=== PATIENT | male | born 1985 | race African-American/Black ===

== ENCOUNTER 2025-01-20 20:50 | Inpatient (IN) | payer OTHER, SELFPAY ==
--- NOTE | 2025-01-20 | ECG_ITS ---
Test Reason : NAUSEA/VOMITING Blood Pressure : */* mmHG Vent. Rate : 69 BPM Atrial Rate : 69 BPM P-R Int : 180 ms QRS Dur : 86 ms QT Int : 398 ms P-R-T Axes : 83 63 61 degrees QTcB Int : 426 ms Normal sinus rhythm Biatrial enlargement Abnormal ECG No previous ECGs available Referred By: Generic ED Physician Electronically Signed By: TESS SYED
--- NOTE | ~2025-01-20 | CT_ITS ---
CLINICAL HISTORY: diffuse abd pain, N V, elevated Cr CT abdomen and pelvis without contrast Comparison: None provided Findings: The lung bases are clear. There is a cyst in the left lobe of the liver. Liver is otherwise unremarkable. The gallbladder, pancreas, spleen, adrenal glands, and kidneys are unremarkable. The appendix is normal. The remainder of the gastrointestinal tract is unremarkable. There are no enlarged lymph nodes. The bladder is unremarkable. The aorta is normal in diameter. There is no fracture or suspicious lytic or sclerotic lesion. IMPRESSION: No acute abnormality in the abdomen or pelvis. This document has been electronically signed by: Natan Archer MD on 01/21/2025 02:38:01
[2025-01-20 20:56] VITALS: BP 110/84; PULSE 108; O2SAT 99
[2025-01-20 21:08] VITALS: BP 135/93; PULSE 67; RESP 15; TEMP 36.8; O2SAT 99; BMI 26.4
[2025-01-20 21:17] LABS: MANUAL DIFF FLAG NO
--- NOTE | 2025-01-20 21:18 | PC.NURSE ---
assumed care of pt. pt rocio, states he was outside working all day and on his way home he began to vomit and feel dizzy and fatigued. He threw up at least 4 times before [address] into the ED. Pt now complains of leg cramping. provider advised. respirations even and unlabored.
[2025-01-20 21:21] VITALS: BP 135/93; PULSE 67; RESP 15; TEMP 36.8; O2SAT 99
[2025-01-20 21:23] LABS: Hematocrit 45.4 % (42.0-52.0); Hemoglobin 16.7 g/dl (14.0-18.0); Imm Gran Abs Auto 0.05 X10*3/uL (0.00-0.03); Imm Gran Pct Auto 0.4 % (0.0-0.4); Lymphocytes Absolute Auto 2.9 X10*3/uL (1.2-4.9); Mean Corpuscular HGB Conc 36.8 g/dl (31.0-36.0); Mean Corpuscular Hemoglobin 31.7 pg (27.0-33.0); Mean Corpuscular Volume 86.1 fL (80.0-98.0); NRBC Abs Auto 0.000 X10*3/uL (0.0-0.012); NRBC Pct Auto 0.0 /100WBC (0.0-0.2); Platelet Count 380 X10*3/uL (160-400); Red Blood Count 5.27 X10*6/uL (4.60-5.80); White Blood Count 12.4 X10*3/uL (4.8-10.8)
[2025-01-20 21:33] LABS: Alanine Aminotransferase 26 U/L (0-40); Albumin Level 5.3 g/dL (3.5-5.0); Alkaline Phosphatase 80 U/L (39-117); Anion Gap 19 (12-20); Aspartate Amino Transferase 30 U/L (5-37); Blood Urea Nitrogen 22 mg/dL (9-16); Calcium 10.4 mg/dL (8.4-10.2); Carbon Dioxide 24 mmol/L (22-29); Chloride 101 mmol/L (96-108); Creatinine Clr Calc Pharmacy 40.4; Estimated Glomerular Filt Rate 27; Lipase 14 U/L (8-78); Magnesium 2.1 mg/dL (1.6-2.6); Potassium 3.7 mmol/L (3.3-5.1); Sodium 140 mmol/L (135-145); Total Protein 8.8 g/dL (6.5-8.0)
[2025-01-20 21:40] LABS: Troponin-I High Sensitivity 3.0 ng/L (<3.5-35.0)
--- NOTE | 2025-01-21 00:23 | PC.NURSE ---
Dark sienna color urine collected and sent to lab.
[2025-01-21 00:24] VITALS: BP 120/66; PULSE 85; RESP 18; TEMP 37.1; O2SAT 98
[2025-01-21 00:42] LABS: Cannabinoid Screen Urine POSITIVE (Not Detect)
--- NOTE | 2025-01-21 00:43 | ED.NAVMDI ---
HPI - Nausea/Vomiting/Diarrhea General Chief complaint: Nausea/Vomiting/Diarrhea Stated complaint: dehydration ,vomit, cramps Time Seen by Provider: 01/21/25 00:07 Source: patient Mode of arrival: ambulatory Limitations: no limitations History of Present Illness ED Provider: Dr. Evelyn Herman HPI Narrative: Patient comes to the emergency room complaining of nausea and vomiting for couple of days. Patient states that he does a lot of physical work outside, frequently becomes dehydrated, admits that he does not drink enough water. Patient complaining of muscle cramps, nausea, vomiting. Patient states that last week he had the same thing happening, he was admitted to [facility], states he was there for 4 days. Patient admits that he uses marijuana as well. Patient denies fever chills. Patient states that his urine looks almost like coffee Related Data Allergies Allergy/AdvReac Type Severity Reaction Status Date / Time No Known Allergies Allergy Verified 01/20/25 21:09 Review of Systems Review of Systems: Constitutional : No Weight loss, No Fever, No Chills, No Night Sweats, No Fatigue, No Malaise ENT/Mouth : No Hearing loss, No Ear Pain, No Nasal Congestion, No Sinus Pain, No Hoarseness, No sore throat, No Rhinorrhea, No Swallowing Difficulty Eyes: No Eye Pain, No Swelling, No Redness, No Foreign Body, No Discharge, No Vision Changes Cardiovascular : No Chest Pain, No SOB, No Dyspnea on Exertion, No Orthopnea, No Edema, No Palpitations Respiratory : No Cough, No Sputum, No Wheezing, No Smoke Exposure, No Dyspnea Gastrointestinal : Nausea and vomiting No Diarrhea, No Constipation, No abdominal Pain, No Hematochezia, No Melena Genitourinary : no irregular bleeding, No Dysuria, No Urinary Frequency, No Hematuria, No Urinary Incontinence, No Urgency, No Flank Pain, No Urinary Flow Changes, No Hesitancy Musculoskeletal : No joint pain, No Myalgias, No Joint Swelling Skin : No Skin Lesions, No rash Neuro : No Weakness, No Numbness, No Paresthesias, No Loss of Consciousness, No Dizziness, No Headache Psych : No Anxiety/Panic, No Depression, No SI/HI/AH/VH, No Social Issues, Heme/Lymph: No Bruising, No Bleeding,No Lymphadenopathy Endocrine : No Polyuria, No Polydipsia, No Temperature Intolerance [facility] Social History Social History Advance Directives: No Advance Directives Information Provided: No Do you have a plan to hurt others: No Plan Physical Exam Vital Signs: Vital Signs: Last Vital Signs Temp 98.2 F 01/21/25 03:49 Pulse 52 01/21/25 03:49 Resp 18 01/21/25 03:49 BP 123/67 01/21/25 03:49 Pulse Ox 99 01/21/25 03:49 O2 Del Method Room Air 01/21/25 03:49 BMI result Body Mass Index 26.4 Const: Other: Appearance: Alert. Oriented X3. Very uncomfortable, actively vomiting Eyes: Pupils equal, round and reactive to light. ENT: Pharynx normal. Neck: Normal inspection. Neck supple. No lymph nodes noted. No crepitus CVS: Normal heart rate and rhythm. Pulses normal. Normal S1 and S2 Respiratory: No respiratory distress. Breath sounds normal. No Wheezing. No rales Abdomen: Soft tenderness, just discomfort to palpation, No rigidity. No distention. Skin: Skin warm and dry. Normal skin color. Normal skin turgor. Extremities: No lower extremity edema. No Lacerations. No Rash Neuro: Oriented X 3. No motor deficit. No sensory deficit. Moving all extremities. No slurred speech. CN 2 through 12 grossly intact Psych: calm, cooperative, normal affect Course Course Course Narrative: Patient receiving IV fluids, Zofran. All of patient's labs pending. Medications Administered Discontinued Medications Generic Name Dose Route Start Last Admin Trade Name Freq PRN Reason Stop Dose Admin Sodium Chloride 1,000 mls @ 999 mls/hr 01/20/25 23:45 01/21/25 02:01 Ns IV 01/21/25 00:45 Infused .Q1H1M LEONOR Infusion Sodium Chloride 1,000 mls @ 999 mls/hr 01/21/25 00:08 01/21/25 01:35 Ns IVCONT 01/21/25 01:08 Infused .Q1H1M ONE Infusion Ondansetron HCl 4 mg 01/20/25 23:57 01/21/25 00:00 Ondansetron Hcl 4 Mg/2 Ml Vial IVPUSH 01/20/25 23:58 4 mg ONCE ONE Administration Prochlorperazine Edisylate 10 mg 01/21/25 00:09 01/21/25 00:14 Prochlorperazine Edisylate 10 Mg/2 Ml Vial IVPUSH 01/21/25 00:10 10 mg ONCE ONE Administration Medical Decision Making Medical Decision Making [facility] Narrative: My interpretation of labs: Patient's white blood cell count 12.4, no other significant abnormality in patient's hematology. Patient's creatinine is 2.69, no previous labs for comparison. Total CPK 275, lipase normal Patient continuous vomiting, patient given more IV fluids and Compazine, now a total [address] scan of the abdomen does not show any acute abnormality. Patient was p.o. challenged. Patient did not vomit but he is still very nauseous. Patient looking a bit clammy, still does not feel very well. Patient's creatinine did improve but not enough to be ready for discharge. I discussed the patient with Dr. Ramos from the Medicine team, patient being admitted Differential Diagnosis Differential Diagnoses: The differential diagnosis associated with the presentation includes (Dehydration, rhabdo, viral gastroenteritis, cyclical vomiting) Admission/Observation Consideration of admission/observation: Escalation of care including admission/observation considered Consult Healthcare Provider Management of the patient was discussed with: Hospitalist Lab Data [facility] Lab Attestation statement: I reviewed the patient's lab results. 01/20/25 21:12 01/21/25 03:53 Labs: Lab Results 01/20/25 01/21/25 01/21/25 Range/Units 21:12 00:22 03:53 WBC 12.4 H (4.8-10.8) X10*3/uL RBC 5.27 (4.60-5.80) X10*6/uL Hgb 16.7 (14.0-18.0) g/dl Hct 45.4 (42.0-52.0) % MCV 86.1 (80.0-98.0) fL MCH 31.7 (27.0-33.0) pg MCHC 36.8 H (31.0-36.0) g/dl RDW 12.8 (11.0-16.0) % Plt Count 380 (160-400) X10*3/uL MPV 9.1 L (9.4-12.4) fL Immature Gran % (Auto) 0.4 (0.0-0.4) % Neut % (Auto) 67.3 (45-73) % Lymph % (Auto) 23.4 (20-40) % [place] % (Auto) 7.8 (2-11) % Eos % (Auto) 0.6 (0-4) % Baso % (Auto) 0.5 (0-2) % Lymph # (Auto) 2.9 (1.2-4.9) X10*3/uL [place] # (Auto) 1.0 (0.1-1.2) X10*3/uL Eos # (Auto) 0.1 (0.0-0.4) X10*3/uL Baso # (Auto) 0.1 (0.0-0.2) X10*3/uL Abs Immat Gran (auto) 0.05 H (0.00-0.03) X10*3/uL Absolute Neuts (auto) 8.3 (2.0-8.3) x10*3/uL Absolute Nucleated RBC 0.000 (0.0-0.012) X10*3/uL Nucleated RBC % (auto) 0.0 (0.0-0.2) /100WBC Sodium 140 140 (135-145) mmol/L Potassium 3.7 4.5 D (3.3-5.1) mmol/L Chloride 101 107 (96-108) mmol/L Carbon Dioxide 24 21 L (22-29) mmol/L Anion Gap 19 17 (12-20) BUN 22 H 21 H (9-16) mg/dL Creatinine 2.69 H 1.63 H (0.5-1.4) mg/dL Estim Creat Clear Calc 40.4 66.7 Estimated GFR 27 47 Random Glucose 132 H 130 H (60-115) mg/dL Calcium 10.4 H 9.1 D (8.4-10.2) mg/dL Magnesium 2.1 (1.6-2.6) mg/dL Total Bilirubin 0.4 (0.0-1.0) mg/dL AST 30 (5-37) U/L ALT 26 (0-40) U/L Alkaline Phosphatase 80 (39-117) U/L Total Creatine Kinase 275 H (38-174) U/L Troponin I High Sens 3.0 (<3.5-35.0) ng/L Total Protein 8.8 H (6.5-8.0) g/dL Albumin 5.3 H (3.5-5.0) g/dL Lipase 14 (8-78) U/L Urine Opiates Screen Not Detected (Not Detect) Ur Buprenorphine Scrn Not Detected (Not Detect) ng/mL Ur Oxycodone Screen Not Detected (Not Detect) ng/mL Urine Methadone Screen Not Detected (Not Detect) ng/mL Urine Fentanyl Screen Not Detected (Not Detect) Ur Barbiturates Screen Not Detected (Not Detect) Ur Phencyclidine Scrn Not Detected (Not Detect) Ur Amphetamines Screen Not Detected (Not Detect) U Benzodiazepines Scrn Not Detected (Not Detect) Urine Cocaine Screen Not Detected (Not Detect) U Marijuana (THC) Screen POSITIVE H (Not Detect) Independent Interpretation I performed an independent interpretation of an: CT Scan Radiology Impression Discussion of test interpretation with radiology: I have reviewed the radiologist's reading. Radiologist Impression: There is a cyst in the left lobe of the liver. Liver is otherwise unremarkable. The gallbladder, pancreas, spleen, adrenal glands, and kidneys are unremarkable. The appendix is normal. The remainder of the gastrointestinal tract is unremarkable. There are no enlarged lymph nodes. The bladder is unremarkable. The aorta is normal in diameter. There is no fracture or suspicious lytic or sclerotic lesion. IMPRESSION: No acute abnormality in the abdomen or pelvis. Critical Care Time Critical Care Time Critical Care Time: Yes Total Critical Care Time: 60 Attestation: I have personally provided critical care time. Time includes review of lab data, radiology results, discussion with consultants, and monitoring for potential decompensation. Intervention performed as documented. Discharge Plan Discharge Clinical Impression: Dehydration, Rhabdomyolysis, Cyclical vomiting Patient Disposition: Admitted As Inpatient Print Language: [place]
[2025-01-21 02:23] VITALS: BP 129/76; PULSE 54; RESP 18; O2SAT 95
[2025-01-21 03:49] VITALS: BP 123/67; PULSE 52; RESP 18; TEMP 36.8; O2SAT 99
[2025-01-21 04:20] LABS: Anion Gap 17 (12-20); Blood Urea Nitrogen 21 mg/dL (9-16); Calcium 9.1 mg/dL (8.4-10.2); Carbon Dioxide 21 mmol/L (22-29); Chloride 107 mmol/L (96-108); Creatinine Clr Calc Pharmacy 66.7; Estimated Glomerular Filt Rate 47; Potassium 4.5 mmol/L (3.3-5.1); Sodium 140 mmol/L (135-145)
--- NOTE | 2025-01-21 05:02 | PC.NURSE ---
Pt given saltine crackers and gingerale, tolerated well, denies nausea.
--- NOTE | 2025-01-21 05:29 | P.HPHOSP_ITS ---
History of Present Illness Date of Service: 01/21/25 Attending physician on admission: Cassie Ramos Chief Complaint: vomiting Patient is a 39-year-old male with a past medical history significant for anxiety, who presented to the ED due to vomiting for the past few days. 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 He has had muscle cramping, nausea and vomiting. He had a similar episode last week and was hospitalized a [facility] for 4 days. Currently he feels uncomfortable in his having nausea but vomiting is controlled. He also reports intermittent diarrhea usually only once a day without any blood in the stool. He denies any hematemesis either. He does not have any urinary symptoms aside from dark urine. He reports that he smokes a few joints per day. No alcohol or cigarette use. Review of Systems 2 Constitutional: Constitutional: Denies chills, Reports fatigue, Denies fever(s) and Denies headache(s) Eyes: Eyes: Denies change in vision ENT: Denies headache(s) and Denies nasal discharge Cardiovascular: Cardiovascular: Denies chest pain, Denies rapid heart rate, Denies leg edema and Denies dyspnea Respiratory: Respiratory: Denies chest congestion, Denies cough, Denies dyspnea and Denies wheezing Gastrointestinal: Gastrointestinal: Reports as per HPI Genitourinary: Genitourinary: Denies dysuria Musculoskeletal: Musculoskeletal: Reports muscle cramps Integumentary/Breasts: Skin/Breast: Denies rash Neurologic: Denies confusion and Denies headache(s) Psychiatric: Psychiatric: Denies confusion Endocrine: Endocrine: Reports fatigue Hematologic/Lymphatic: Hematologic/Lymphatic: Denies easy bleeding and Denies easy bruising Allergic/Immunologic: Allergic/Immunologic: Denies wheezing [facility] Medical History Anxiety Functional capacity: independent ambulation Social History Unable to assess alcohol history related to: Unable to respond Patient Tobacco Use Status: Never used Tobacco Advance Directives: No Advance Directives Information Provided: No Do you have a plan to hurt others: No Plan Nutrition Risks: No Nutritional Risk Narrative: smokes a few joints/day . no etoh or ciagrettes. Meds Allergies Allergy/AdvReac Type Severity Reaction Status Date / Time No Known Allergies Allergy Verified 01/20/25 21:09 Active Medications: Current Medications Acetaminophen (Acetaminophen 325 Mg Tablet) 975 mg PO Q6H PRN PRN Reason: Pain, Mild 1-3,fever,headache Calcium Carbonate (Calcium Carbonate 750 Mg Tab.Chew) 750 mg PO Q4H PRN PRN Reason: Heartburn Enoxaparin Sodium (Enoxaparin Sodium 40 Mg/0.4 Ml Syringe) 40 mg SUBCUT Q24H [facility] Magnesium Hydroxide (Milk Of Magnesia 30 Ml Oral.Susp) 30 ml PO DAILY PRN PRN Reason: Constipation Melatonin (Melatonin 3 Mg Tablet) 6 mg PO BEDTIME PRN PRN Reason: Insomnia Ondansetron HCl (Ondansetron Hcl 4 Mg/2 Ml Vial) 4 mg IVPUSH Q8H PRN PRN Reason: Nausea and Vomiting Sodium Chloride (0.9 % Sodium Chloride Flush 3 Ml Syringe) 3 ml IVFLUSH QSHIFT LEONOR Physical Exam 2 Vital Signs and Narrative: Vital Signs: Last Vital Signs Temp 98.2 F 01/21/25 03:49 Pulse 52 01/21/25 03:49 Resp 18 01/21/25 03:49 BP 123/67 01/21/25 03:49 Pulse Ox 99 01/21/25 03:49 O2 Del Method Room Air 01/21/25 03:49 BMI result Body Mass Index 26.4 General: AOx3, no acute distress Resp: CTA bilaterally CVS: S1, S2, RRR GI: +BS, NT, no distention Skin: Warm, dry Neuro: Cranial nerves II-XII grossly intact bilaterally. Motor grossly intact bilaterally Extremities: No LE edema Psych: Appropriate affect Const: General: No confusion Orientation/consciousness: No confusion Neuro: General: No confusion Results Labs 01/20/25 21:12 01/21/25 03:53 Labs: Laboratory Results - last 24 hr 01/20/25 01/21/25 01/21/25 21:12 00:22 03:53 MCV 86.1 MCH 31.7 MCHC 36.8 H RDW 12.8 Plt Count 380 MPV 9.1 L Immature Gran % (Auto) 0.4 Neut % (Auto) 67.3 Lymph % (Auto) 23.4 [place] % (Auto) 7.8 Eos % (Auto) 0.6 Baso % (Auto) 0.5 Lymph # (Auto) 2.9 [place] # (Auto) 1.0 Eos # (Auto) 0.1 Baso # (Auto) 0.1 Abs Immat Gran (auto) 0.05 H Absolute Neuts (auto) 8.3 Absolute Nucleated RBC 0.000 Nucleated RBC % (auto) 0.0 Anion Gap 19 17 Estim Creat Clear Calc 40.4 66.7 Estimated GFR 27 47 Random Glucose 132 H 130 H Calcium 10.4 H 9.1 D Magnesium 2.1 Total Bilirubin 0.4 AST 30 ALT 26 Alkaline Phosphatase 80 Total Creatine Kinase 275 H Total Protein 8.8 H Albumin 5.3 H Lipase 14 Urine Opiates Screen Not Detected Ur Buprenorphine Scrn Not Detected Ur Oxycodone Screen Not Detected Urine Methadone Screen Not Detected Urine Fentanyl Screen Not Detected Ur Barbiturates Screen Not Detected Ur Phencyclidine Scrn Not Detected Ur Amphetamines Screen Not Detected U Benzodiazepines Scrn Not Detected Urine Cocaine Screen Not Detected U Marijuana (THC) Screen POSITIVE H Assessment and Plan (1) SAAD (acute kidney injury): Status: Acute (2) Dehydration: Status: Acute (3) Cyclical vomiting: Status: Acute Plan Patient is a 39-year-old male with a past medical history significant for anxiety, who presented to the ED due to vomiting for the past few days. 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 SAAD secondary to dehydration - electrolytes ok, bicarb slightly low at 21, BUN 21 - cr 2.69, improved to 1.63 - CPK 275, not elevated enough to be rhabdo - 2L IVF in ED, add LR 100ml/hr - monitor BMP cyclical vomiting, likely cannabinoid hyperemesis syndrome - frequent vomiting and frequent marijuana use - recent admission and [facility] for similar - discussed marijuana cessation - monitor CBC and BMP anxiety - no home meds full code VTE prophy: lovenox Patient with SAAD secondary to dehydration from cyclical vomiting, likely cannabinoid hyperemesis syndrome, requiring admission for at least 2 midnight stay for IV fluids and monitoring. Quality Stroke Does the patient have a stroke diagnosis?: No VTE Prior VTE?: No VTE Risk Level:: Medical - moderate - high VTE Device Contraindication: Treatment Not Indicated VTE Drug Contraindication: N/A - Med Ordered
[2025-01-21 06:06] VITALS: BP 128/39; PULSE 53; RESP 20; TEMP 36.8; O2SAT 100
[2025-01-21] MEDS: Lactated Ringers 1,000 ML 100 ML IVCONT ×2 (06:21→21:55)
--- NOTE | 2025-01-21 08:09 | PC.NURSE ---
Dr Tyler notified that the patients home meds have been reconciled by the pharmacy but have not yet been ordered.
--- NOTE | 2025-01-21 08:20 | PC.NURSE ---
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
--- NOTE | 2025-01-21 09:49 | PHA.MEDREC ---
Addendum entered by Qing Corbin RPh 01/21/25 11:08: [facility] REVIEWED Original Note: Pharmacy Consult ? Medication Reconciliation Pharmacy has completed the medication reconciliation. Spoke with pt, who was a bit sleepy but able to confirm his medications. Pt confirmed he takes his Escitalopram at bedtime and pt still has Ondansetron at home as needed.
--- NOTE | 2025-01-21 13:39 | HO.PM.IMPN ---
Subjective Subjective Date of Service: 01/21/25 Interval History: ongoing vomiting recognizes he has to quit THC Review of Systems Review of Systems: Yes all other systems are reviewed and are negative Physical Exam Vital Signs: Vital Signs: Last Vital Signs Temp 98.3 F 01/21/25 06:06 Pulse 53 01/21/25 06:06 Resp 20 01/21/25 06:06 BP 128/39 L 01/21/25 06:06 Pulse Ox 100 01/21/25 06:06 O2 Del Method Room Air 01/21/25 06:06 BMI result Body Mass Index 26.4 Gen: in no acute distress HEENT: sclera anicteric, moist mucus membranes Neck: supple Lungs: clear to auscultation bilaterally Heart: regular rate and rhythm, no murmurs Abd: soft, non-tender, non-distended Ext: no edema Skin: warm/well-perfused Neuro: alert and oriented x3, no focal findings Psych: appropriate affect Objective Data Active Medications Acetaminophen (Acetaminophen 325 Mg Tablet) 975 mg PO Q6H PRN PRN Reason: Pain, Mild 1-3,fever,headache Calcium Carbonate (Calcium Carbonate 750 Mg Tab.Chew) 750 mg PO Q4H PRN PRN Reason: Heartburn Enoxaparin Sodium (Enoxaparin Sodium 40 Mg/0.4 Ml Syringe) 40 mg SUBCUT Q24H [facility] Last Admin: 01/21/25 08:17 Dose: 40 mg Documented By: AICHA Escitalopram Oxalate (Escitalopram Oxalate 10 Mg Tablet) 10 mg PO BEDTIME [facility] Lactated Ringer's (Lr) 1,000 mls @ 100 mls/hr IVCONT .Q10H [facility] Last Admin: 01/21/25 06:21 Dose: 100 mls/hr Documented By: SREEDHAR Magnesium Hydroxide (Milk Of Magnesia 30 Ml Oral.Susp) 30 ml PO DAILY PRN PRN Reason: Constipation Melatonin (Melatonin 3 Mg Tablet) 6 mg PO BEDTIME PRN PRN Reason: Insomnia Omeprazole (Omeprazole 20 Mg Capsule.Dr) 20 mg PO BID@0630,1630 [facility] Ondansetron HCl (Ondansetron Hcl 4 Mg/2 Ml Vial) 4 mg IVPUSH Q8H PRN PRN Reason: Nausea and Vomiting Last Admin: 01/21/25 10:44 Dose: 4 mg Documented By: AICHA Simethicone (Simethicone 80 Mg Tab.Chew) 80 mg PO QID PRN PRN Reason: Gas Sodium Chloride (0.9 % Sodium Chloride Flush 3 Ml Syringe) 3 ml IVFLUSH QSHIFT LEONOR Last Admin: 01/21/25 08:17 Dose: Not Given Documented By: AICHA Non-Admin Reason: IV Running Labs 01/20/25 21:12 01/21/25 03:53 Labs: Laboratory Results - last 24 hr 01/20/25 01/21/25 01/21/25 21:12 00:22 03:53 MCV 86.1 MCH 31.7 MCHC 36.8 H RDW 12.8 Plt Count 380 MPV 9.1 L Immature Gran % (Auto) 0.4 Neut % (Auto) 67.3 Lymph % (Auto) 23.4 [place] % (Auto) 7.8 Eos % (Auto) 0.6 Baso % (Auto) 0.5 Lymph # (Auto) 2.9 [place] # (Auto) 1.0 Eos # (Auto) 0.1 Baso # (Auto) 0.1 Abs Immat Gran (auto) 0.05 H Absolute Neuts (auto) 8.3 Absolute Nucleated RBC 0.000 Nucleated RBC % (auto) 0.0 Anion Gap 19 17 Estim Creat Clear Calc 40.4 66.7 Estimated GFR 27 47 Random Glucose 132 H 130 H Calcium 10.4 H 9.1 D Magnesium 2.1 Total Bilirubin 0.4 AST 30 ALT 26 Alkaline Phosphatase 80 Total Creatine Kinase 275 H Total Protein 8.8 H Albumin 5.3 H Lipase 14 Urine Opiates Screen Not Detected Ur Buprenorphine Scrn Not Detected Ur Oxycodone Screen Not Detected Urine Methadone Screen Not Detected Urine Fentanyl Screen Not Detected Ur Barbiturates Screen Not Detected Ur Phencyclidine Scrn Not Detected Ur Amphetamines Screen Not Detected U Benzodiazepines Scrn Not Detected Urine Cocaine Screen Not Detected U Marijuana (THC) Screen POSITIVE H Assessment and Plan (1) Cyclical vomiting: Status: Acute (2) SAAD (acute kidney injury): Status: Acute Plan d1 for 39yo M presenting with nausea/vomiting and found to have SAAD cannabinoid hyperemesis syndrome - continue IV fluids, antiemetics prerenal SAAD - improving with IV fluids, recheck BMP in AM mood disorder - escitalopram VTE ppx - enoxaparin dispo - eventual home In my clinical judgment, the patient requires continued inpatient hospitalization for the following reasons: IV fluids Total time managing care of this patient today: 35 minutes. Quality Stroke Does the patient have a stroke diagnosis?: No VTE Prior VTE?: No VTE Risk Level:: Medical - moderate - high VTE Device Contraindication: Treatment Not Indicated VTE Drug Contraindication: N/A - Med Ordered
[2025-01-21 16:14] VITALS: BMI 26.4
[2025-01-21 16:24] VITALS: BP 145/72; PULSE 53; RESP 16; TEMP 37.4; O2SAT 96
[2025-01-21] MEDS: 0.9 % Sodium Chloride Flush 3 ML SYRINGE IVFLUSH ×2 (16:29→21:51)
[2025-01-21 19:22] VITALS: BP 124/70; PULSE 61; RESP 16; TEMP 37; O2SAT 96
[2025-01-22 03:28] VITALS: BP 138/74; PULSE 62; RESP 16; TEMP 36.1; O2SAT 98
[2025-01-22 06:32] LABS: Hematocrit 41.5 % (42.0-52.0); Hemoglobin 14.3 g/dl (14.0-18.0); Mean Corpuscular HGB Conc 34.5 g/dl (31.0-36.0); Mean Corpuscular Hemoglobin 31.0 pg (27.0-33.0); Mean Corpuscular Volume 90.0 fL (80.0-98.0); NRBC Abs Auto 0.000 X10*3/uL (0.0-0.012); NRBC Pct Auto 0.0 /100WBC (0.0-0.2); Platelet Count 331 X10*3/uL (160-400); Red Blood Count 4.61 X10*6/uL (4.60-5.80); White Blood Count 8.7 X10*3/uL (4.8-10.8)
[2025-01-22 06:49] LABS: Anion Gap 9 (12-20); Blood Urea Nitrogen 15 mg/dL (9-16); Calcium 8.6 mg/dL (8.4-10.2); Carbon Dioxide 29 mmol/L (22-29); Chloride 106 mmol/L (96-108); Creatinine Clr Calc Pharmacy 84.3; Estimated Glomerular Filt Rate > 60; Magnesium 2.2 mg/dL (1.6-2.6); Potassium 3.9 mmol/L (3.3-5.1); Sodium 140 mmol/L (135-145)
[2025-01-22 07:45] VITALS: BP 119/62; PULSE 66; RESP 14; TEMP 37.3; O2SAT 99
[2025-01-22] MEDS: Lactated Ringers 1,000 ML 100 ML IVCONT (07:45)
--- NOTE | 2025-01-22 10:27 | PM.DS ---
DS: Providers Provider Date of Service: 01/22/25 Date of admission: 01/21/25 05:11 Date of discharge: 01/22/25 Primary care physician: Unknown Physician DS: Diagnosis Discharge Diagnosis (1) Cyclical vomiting: Status: Acute (2) SAAD (acute kidney injury): Status: Acute (3) Cannabinoid hyperemesis syndrome: Status: Acute DS: Summary Hospital Course Hospital Course: From the history and physical by the admitting hospitalist, ESTHELA Bolanos, 01/21/25: Patient is a 39-year-old male with a past medical history significant for anxiety, who presented to the ED due to vomiting for the past few days. 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 He has had muscle cramping, nausea and vomiting. He had a similar episode last week and was hospitalized a [facility] for 4 days. Currently he feels uncomfortable in his having nausea but vomiting is controlled. He also reports intermittent diarrhea usually only once a day without any blood in the stool. He denies any hematemesis either. He does not have any urinary symptoms aside from dark urine. He reports that he smokes a few joints per day. No alcohol or cigarette use. 39yo M presenting with nausea/vomiting and found to have SAAD and admitted to the medical-surgical unit for IV hydration. Symptoms resolved and creatinine normalized. Likely ultimately due to cannabinoid hyperemesis syndrome, and he was counseled strongly to avoid cannabis. He tolerated regular diet and was discharged home with prescription for prn ondansetron. Time Attestation Discharge Coordination Time (in mins): 35 Quality: Safe Use of Opioids Does Pt have an Active Cancer Diagnosis on the Problem List?: No Quality: Stroke Does the patient have a stroke diagnosis?: No Physical Exam Vital Signs: Vital Signs: Last Vital Signs Temp 99.1 F 01/22/25 07:45 Pulse 66 01/22/25 07:45 Resp 14 01/22/25 07:45 BP 119/62 01/22/25 07:45 Pulse Ox 99 01/22/25 07:45 O2 Del Method Room Air 01/22/25 07:45 BMI result Body Mass Index 26.4 Gen: in no acute distress HEENT: sclera anicteric, moist mucus membranes Neck: supple Lungs: clear to auscultation bilaterally Heart: regular rate and rhythm, no murmurs Abd: soft, non-tender, non-distended Ext: no edema Skin: warm/well-perfused Neuro: alert and oriented x3, no focal findings Psych: appropriate affect DS: Data Data Completed and Pending Completed studies during hospitalization [Text1]: Laboratory Results WBC 8.7 X10*3/uL (4.8-10.8) 01/22/25 06:22 RBC 4.61 X10*6/uL (4.60-5.80) 01/22/25 06:22 Hgb 14.3 g/dl (14.0-18.0) 01/22/25 06:22 Hct 41.5 % (42.0-52.0) L 01/22/25 06:22 MCV 90.0 fL (80.0-98.0) 01/22/25 06:22 MCH 31.0 pg (27.0-33.0) 01/22/25 06:22 MCHC 34.5 g/dl (31.0-36.0) 01/22/25 06:22 RDW 12.9 % (11.0-16.0) 01/22/25 06:22 Plt Count 331 X10*3/uL (160-400) 01/22/25 06:22 MPV 9.5 fL (9.4-12.4) 01/22/25 06:22 Immature Gran % (Auto) 0.4 % (0.0-0.4) 01/20/25 21:12 Neut % (Auto) 67.3 % (45-73) 01/20/25 21:12 Lymph % (Auto) 23.4 % (20-40) 01/20/25 21:12 Robeson % (Auto) 7.8 % (2-11) 01/20/25 21:12 Eos % (Auto) 0.6 % (0-4) 01/20/25 21:12 Baso % (Auto) 0.5 % (0-2) 01/20/25 21:12 Lymph # (Auto) 2.9 X10*3/uL (1.2-4.9) 01/20/25 21:12 Robeson # (Auto) 1.0 X10*3/uL (0.1-1.2) 01/20/25 21:12 Eos # (Auto) 0.1 X10*3/uL (0.0-0.4) 01/20/25 21:12 Baso # (Auto) 0.1 X10*3/uL (0.0-0.2) 01/20/25 21:12 Abs Immat Gran (auto) 0.05 X10*3/uL (0.00-0.03) H 01/20/25 21:12 Absolute Neuts (auto) 8.3 x10*3/uL (2.0-8.3) 01/20/25 21:12 Absolute Nucleated RBC 0.000 X10*3/uL (0.0-0.012) 01/22/25 06:22 Nucleated RBC % (auto) 0.0 /100WBC (0.0-0.2) 01/22/25 06:22 Sodium 140 mmol/L (135-145) 01/22/25 06:22 Potassium 3.9 mmol/L (3.3-5.1) 01/22/25 06:22 Chloride 106 mmol/L (96-108) 01/22/25 06:22 Carbon Dioxide 29 mmol/L (22-29) 01/22/25 06:22 Anion Gap 9 (12-20) L 01/22/25 06:22 BUN 15 mg/dL (9-16) 01/22/25 06:22 Creatinine 1.29 mg/dL (0.5-1.4) 01/22/25 06:22 Estim Creat Clear Calc 84.3 01/22/25 06:22 Estimated GFR > 60 01/22/25 06:22 Random Glucose 90 mg/dL (60-115) 01/22/25 06:22 Calcium 8.6 mg/dL (8.4-10.2) 01/22/25 06:22 Magnesium 2.2 mg/dL (1.6-2.6) 01/22/25 06:22 Total Bilirubin 0.4 mg/dL (0.0-1.0) 01/20/25 21:12 AST 30 U/L (5-37) 01/20/25 21:12 ALT 26 U/L (0-40) 01/20/25 21:12 Alkaline Phosphatase 80 U/L (39-117) 01/20/25 21:12 Total Creatine Kinase 275 U/L (38-174) H 01/20/25 21:12 Troponin I High Sens 3.0 ng/L (<3.5-35.0) 01/20/25 21:12 Total Protein 8.8 g/dL (6.5-8.0) H 01/20/25 21:12 Albumin 5.3 g/dL (3.5-5.0) H 01/20/25 21:12 Lipase 14 U/L (8-78) 01/20/25 21:12 Urine Opiates Screen Not Detected (Not Detect) 01/21/25 00:22 Ur Buprenorphine Scrn Not Detected ng/mL (Not Detect) 01/21/25 00:22 Ur Oxycodone Screen Not Detected ng/mL (Not Detect) 01/21/25 00:22 Urine Methadone Screen Not Detected ng/mL (Not Detect) 01/21/25 00:22 Urine Fentanyl Screen Not Detected (Not Detect) 01/21/25 00:22 Ur Barbiturates Screen Not Detected (Not Detect) 01/21/25 00:22 Ur Phencyclidine Scrn Not Detected (Not Detect) 01/21/25 00:22 Ur Amphetamines Screen Not Detected (Not Detect) 01/21/25 00:22 U Benzodiazepines Scrn Not Detected (Not Detect) 01/21/25 00:22 Urine Cocaine Screen Not Detected (Not Detect) 01/21/25 00:22 U Marijuana (THC) Screen POSITIVE (Not Detect) H 01/21/25 00:22 Discharge Plan Discharge Anticipated Discharge Date/Time: 01/22/25 10:25 Patient Disposition: Home, Self-Care Discharge Diagnosis: acute kidney injury cannabinoid hyperemesis syndrome Referrals: Physician,Unknown J [Primary Care Provider, Medical] - 1 Week Discharge Medications: Continued pantoprazole 40 mg tablet,delayed release (DR/EC) 40 mg PO BID@0630,1630 simethicone 80 mg tablet,chewable 80 mg PO QID PRN (Reason: gas) escitalopram oxalate 10 mg tablet 10 mg PO BEDTIME ondansetron 4 mg tablet,disintegrating 4 mg PO Q12H PRN (Reason: nausea) Qty: 20 0RF Discharge Orders: Discharge Order (Routine); Ordered 01/22/25 Ordered By: Jaehyun Kimberley Diet: Advance to usual diet Activity on Discharge: As tolerated Stand Alone Forms: Patient Portal Discharge page Print Language: Iranian Care Plan Goals: avoid dehydration Health Concerns: acute kidney injury cannabinoid hyperemesis syndrome Plan of Treatment: avoid cannabis drink plenty of fluids Please follow up with your primary care doctor within 1 week. Return to the hospital if you experience recurrent or worsening symptoms. Assessment: See Discharge Summary.
--- NOTE | 2025-01-22 10:32 | MHC.CM.PN ---
pt dcd home self care
[2025-01-22 10:46] VITALS: BP 139/73; PULSE 67; RESP 16; TEMP 36.4; O2SAT 97
== END 2025-01-22 10:54 | disposition home or self-care (01) | DRG 351 ==
LOC: HO.ED 01-21 00:48 → HO.EDOVER 01-21 06:26 → HO.S3 01-21 15:14
PROVIDERS: Physician Assistant; Admitting Provider Student in an Organized Health Care Education/Training Program; Emergency Provider Emergency Medicine; Visit Provider Family Medicine
DX: M62.82 Rhabdomyolysis (principal); N17.9 Acute kidney failure, unspecified; E86.0 Dehydration; F12.90 Cannabis use, unspecified, uncomplicated; F41.9 Anxiety disorder, unspecified; R11.2 Nausea with vomiting, unspecified; Z79.899 Other long term (current) drug therapy
CPT/HCPCS: 36415; 74176; 80048; 80053; 80307; 82550; 83690; 83735; 84484; 85025; 85027; 93005; 99221; 99285; J0737; J1650; J2405; J7120

== ENCOUNTER → 2025-01-20 21:07 | Outpatient (BNV) | payer MEDICAID, SELFPAY | PROVIDERS: Admitting Provider Student in an Organized Health Care Education/Training Program; Emergency Provider Emergency Medicine; Visit Provider Internal Medicine | DX: I51.7 Cardiomegaly (principal) | CPT/HCPCS: 93010 ==

== ENCOUNTER → 2025-01-21 00:13 | Outpatient (BNV) | payer MEDICAID, SELFPAY | PROVIDERS: Emergency Provider Emergency Medicine; Visit Provider Radiology Diagnostic Radiology | DX: R10.84 Generalized abdominal pain (principal); R11.2 Nausea with vomiting, unspecified; R79.89 Other specified abnormal findings of blood chemistry | CPT/HCPCS: 74176 ==

== ENCOUNTER → 2025-01-21 05:11 | Outpatient (BNV) | payer MEDICAID, SELFPAY | PROVIDERS: Admitting Provider Student in an Organized Health Care Education/Training Program; Emergency Provider Emergency Medicine; Visit Provider Physician Assistant | DX: R11.15 Cyclical vomiting syndrome unrelated to migraine (principal); N17.9 Acute kidney failure, unspecified; R11.2 Nausea with vomiting, unspecified; F12.90 Cannabis use, unspecified, uncomplicated | CPT/HCPCS: 99223; 99239; 99499 ==